=== PATIENT | male | born 1990 | race Caucasian/White ===

== ENCOUNTER 2020-05-08 16:47 | Inpatient (IN) | payer MEDICAID ==
[~2020-05-08] VITALS: Ht 170.2 cm; Wt 79.0 kg
[2020-05-08 18:56] LABS: EOSINOPHILS % (AUTO) 0 % (1.0-6.0); HEMATOCRIT 44.8 % (41-53); HEMOGLOBIN 15.1 g/dL (13.5-17.5); LYMPHOCYTES # (AUTO) 0.6 K/uL (1.0-4.8); LYMPHOCYTES % (AUTO) 9.2 % (22.0-44.0); MEAN CORPUSCULAR HEMOGLOBIN 28.4 pg (26.0-34.0); MEAN CORPUSCULAR HGB CONC 33.6 G/dL (31.0-37.0); MEAN CORPUSCULAR VOLUME 85 fL (80-100); MONOCYTES # (AUTO) 0.3 K/uL (0.1-1.0); NEUTROPHILS # (AUTO) 5.5 K/uL (1.8-7.7); PLATELET COUNT (AUTO) 320 K/uL (150-450); RED CELL DISTRIBUTION WIDTH 13.7 % (11.5-14.5)
[2020-05-08 18:58] LABS: NEUTROPHILS % (AUTO) 86.8 % (40.0-70.0)
[2020-05-08 19:01] LABS: ANION GAP 8 mmol/L (8-16); CARBON DIOXIDE 29 mmol/L (22-29); CHLORIDE 101 mmol/L (98-107); CREATININE 0.83 mg/dL (0.60-1.30); GLOMERULAR FILTR. RATE CALC > 60 mL/min (>60); GLUCOSE,RANDOM 115 mg/dL (70-110); POTASSIUM 4.4 mmol/L (3.5-5.1); SODIUM SERUM 138 mmol/L (136-145); UREA NITROGEN, BLOOD 18 mg/dL (7-18)
[2020-05-08 19:08] LABS: ALANINE AMINOTRANSFERASE 71 U/L (12-78); ALBUMIN 4.5 g/dL (3.4-5.0); ALKALINE PHOSPHATASE 92 U/L (46-116); ASPARTATE AMINOTRANSFERASE 24 U/L (15-37); BILIRUBIN,TOTAL 0.7 mg/dL (0.1-1.0)
[2020-05-08 19:22] LABS: COVID AG,FIA SOURCE NASOPHARYNGEAL
[2020-05-08] MEDS ORDERED: LORazepam 2 MG/ML VIAL IM ONE (19:30)
[2020-05-08 22:09] VITALS: BP 140/94
[2020-05-08] MEDS: ZOLPIDEM TARTRATE 10 MG TABLET PO PRN (22:33)
[2020-05-09] VITALS (11 sets, daily range): BP systolic 113–138; BP diastolic 66–91
[2020-05-09] MEDS: LORazepam 2 MG TABLET PO PRN ×3 (03:55→14:29)
[2020-05-09] MEDS ORDERED: ACETAMINOPHEN 325 MG TABLET PO PRN (07:45)
[2020-05-09] MEDS ORDERED: OMEPRAZOLE 20 MG CAPSULE PO PRN (07:45)
[2020-05-09] MEDS ORDERED: PETROLATUM,WHITE 28 GM JELLY TP PRN (07:45)
[2020-05-09] MEDS ORDERED: BACITRACIN 28 GM OINTMENT TP PRN (07:45)
[2020-05-09] MEDS ORDERED: ONDANSETRON HCL 4 MG TABLET PO PRN (07:45)
[2020-05-09] MEDS ORDERED: BENZOCAINE/MENTHOL LOZENGE PO PRN (07:45)
[2020-05-09] MEDS ORDERED: LOPERAMIDE HCL 2 MG CAPSULE PO PRN (07:45)
[2020-05-09] MEDS ORDERED: MAG HYDROX/AL HYDROX/SIMETH ES 30 ML SUSPENSION UDCUP PO PRN ×2 (07:45→19:15)
[2020-05-09] MEDS ORDERED: CloNIDine HCL 0.1 MG TABLET PO PRN (07:45)
[2020-05-09] MEDS ORDERED: DOCUSATE SODIUM 100 MG CAPSULE PO PRN (07:45)
[2020-05-09] MEDS ORDERED: ALBUTEROL SULFATE HFA 90 MCG/PUFF 8 GM INHALER IH PRN (07:45)
[2020-05-09] MEDS ORDERED: MAGNESIUM HYDROXIDE SUSPENSION 30 ML UDCUP PO PRN (07:45)
[2020-05-09 07:49] LABS: CHOL/HDL RATIO 9.8 (4.2-7.3)
[2020-05-09] MEDS: OLANZapine 5 MG RAPDIS TABLET PO PRN ×2 (08:00→14:29)
[2020-05-09 08:37] LABS: AMPHET/METH SCREEN,URINE NEGATIVE (NEGATIVE); BARBITURATE SCREEN, URINE NEGATIVE (NEGATIVE); BENZODIAZEPINES SCREEN,URINE POSITIVE (NEGATIVE); CANNABINOID SCREEN,URINE NEGATIVE (NEGATIVE); COCAINE SCREEN,URINE POSITIVE (NEGATIVE); METHADONE SCREEN, URINE NEGATIVE (NEGATIVE); OPIATE SCREEN,URINE NEGATIVE (NEGATIVE)
[2020-05-09 08:40] LABS: PHENCYCLIDINE SCREEN,URINE NEGATIVE (NEGATIVE)
[2020-05-09 08:42] LABS: APPEARANCE,URINE CLEAR (CLEAR); GLUCOSE, URINE (UA) NEGATIVE (NEGATIVE); KETONES,URINE 40 mg/dL (NEGATIVE); LEUKOCYTE ESTERASE ,URINE NEGATIVE (NEGATIVE); NITRATE,URINE NEGATIVE (NEGATIVE); OCCULT BLOOD,URINE NEGATIVE (NEGATIVE); PROTEIN,URINE TRACE (NEGATIVE)
[2020-05-09 08:43] LABS: BILIRUBIN,URINE PRELIM. POSITIVE (NEGATIVE)
[2020-05-09 08:54] LABS: BACTERIA,URINE None Seen /HPF (None Seen); RBC,URINE None Seen /HPF (0-2); WBC,URINE None Seen /HPF (0-5)
[2020-05-09] MEDS ORDERED: TUBERCULIN, PURIFIED PROTEIN DERIVATIVE 5 TU/0.1 ML SYRINGE ID ONE (19:15)
[2020-05-09] MEDS ORDERED: IBUPROFEN 600 MG TABLET PO PRN (19:15)
[2020-05-09] MEDS ORDERED: PROMETHAZINE HCL 25 MG TABLET PO PRN (19:15)
[2020-05-09] MEDS ORDERED: HydrOXYzine PAMOATE 50 MG CAPSULE PO PRN (19:15)
[2020-05-09] MEDS ORDERED: GuaiFENesin/D-METHORPHAN [SUGAR-FREE] 200-20MG/10 ML SYRUP UDCUP PO PRN (19:15)
[2020-05-09] MEDS: GABAPENTIN 300 MG CAPSULE PO SCH (20:13)
[2020-05-09] MEDS: CloNIDine HCL 0.1 MG TABLET PO SCH (22:19)
[2020-05-09] MEDS: ZOLPIDEM TARTRATE 10 MG TABLET PO PRN (22:23)
[2020-05-10] VITALS (9 sets, daily range): BP systolic 101–122; BP diastolic 58–81
[2020-05-10] MEDS: LORazepam 2 MG TABLET PO PRN ×3 (01:55→14:26)
[2020-05-10 05:06] LABS: CHOL/HDL RATIO 10.4 (4.2-7.3); FREE T4 (FREE THYROXINE) 1.19 ng/dL (0.76-1.46); THYROID STIMULATING HORMONE 1.63 uIU/mL (0.36-3.74)
[2020-05-10 05:19] LABS: HEMOGLOBIN A1C 5.1 % (3.8-5.6)
[2020-05-10] MEDS: CloNIDine HCL 0.1 MG TABLET PO SCH ×4 (05:57→21:32)
[2020-05-10] MEDS: OMEGA-3/DHA/EPA/FISH OIL 1,000 MG CAPSULE PO SCH (10:31)
[2020-05-10] MEDS: MULTIVITAMINS WITH MINERALS, THERAPEUTIC TABLET PO SCH (10:31)
[2020-05-10] MEDS: GABAPENTIN 300 MG CAPSULE PO SCH ×2 (10:31→14:18)
[2020-05-10] MEDS: OLANZapine 5 MG RAPDIS TABLET PO PRN ×2 (10:31→14:26)
[2020-05-10] MEDS: THIAMINE 100 MG TABLET PO SCH ×2 (10:32→16:39)
[2020-05-10] MEDS: FOLIC ACID 1 MG TABLET PO SCH (10:32)
[2020-05-10] MEDS: IBUPROFEN 600 MG TABLET PO PRN (14:50)
[2020-05-10] MEDS: GABAPENTIN 400 MG CAPSULE PO SCH ×2 (16:39→20:40)
[2020-05-11] VITALS (7 sets, daily range): BP systolic 104–131; BP diastolic 64–80
[2020-05-11] MEDS: CloNIDine HCL 0.1 MG TABLET PO PRN (01:32)
[2020-05-11] MEDS: OLANZapine 5 MG RAPDIS TABLET PO PRN ×2 (01:32→11:24)
[2020-05-11] MEDS: CloNIDine HCL 0.1 MG TABLET PO SCH ×4 (06:08→22:36)
[2020-05-11] MEDS: MULTIVITAMINS WITH MINERALS, THERAPEUTIC TABLET PO SCH (08:49)
[2020-05-11] MEDS: GABAPENTIN 400 MG CAPSULE PO SCH ×4 (08:49→20:42)
[2020-05-11] MEDS: THIAMINE 100 MG TABLET PO SCH ×2 (08:49→16:47)
[2020-05-11] MEDS: OMEGA-3/DHA/EPA/FISH OIL 1,000 MG CAPSULE PO SCH (08:49)
[2020-05-11] MEDS: FOLIC ACID 1 MG TABLET PO SCH (08:49)
[2020-05-11] MEDS: LORazepam 2 MG TABLET PO PRN ×2 (11:24→21:29)
[2020-05-12] VITALS (7 sets, daily range): BP systolic 101–156; BP diastolic 64–82
[2020-05-12] MEDS: ZOLPIDEM TARTRATE 10 MG TABLET PO PRN (00:19)
[2020-05-12] MEDS: HydrOXYzine PAMOATE 50 MG CAPSULE PO PRN ×2 (01:56→09:22)
[2020-05-12] MEDS: LORazepam 2 MG TABLET PO PRN ×2 (01:56→09:23)
[2020-05-12] MEDS: CloNIDine HCL 0.1 MG TABLET PO SCH ×4 (06:00→22:00)
[2020-05-12] MEDS: IBUPROFEN 600 MG TABLET PO PRN (07:40)
[2020-05-12] MEDS: MULTIVITAMINS WITH MINERALS, THERAPEUTIC TABLET PO SCH (09:20)
[2020-05-12] MEDS: OLANZapine 5 MG RAPDIS TABLET PO PRN (09:20)
[2020-05-12] MEDS: GABAPENTIN 400 MG CAPSULE PO SCH ×3 (09:20→16:51)
[2020-05-12] MEDS: OMEGA-3/DHA/EPA/FISH OIL 1,000 MG CAPSULE PO SCH (09:20)
[2020-05-12] MEDS: THIAMINE 100 MG TABLET PO SCH ×2 (09:20→16:51)
[2020-05-12] MEDS: FOLIC ACID 1 MG TABLET PO SCH (09:21)
[2020-05-12] MEDS ORDERED: OLANZapine 5 MG RAPDIS TABLET PO SCH (21:00)
[2020-05-12] MEDS: GABAPENTIN 300 MG CAPSULE PO SCH (21:53)
[2020-05-12] MEDS: OLANZapine 10 MG RAPDIS TABLET PO SCH (21:54)
[2020-05-13] MEDS: CloNIDine HCL 0.1 MG TABLET PO SCH ×4 (06:05→21:43)
[2020-05-13 06:12] VITALS: BP 108/67
[2020-05-13 09:00] VITALS: BP 107/59
[2020-05-13] MEDS: GABAPENTIN 300 MG CAPSULE PO SCH ×4 (10:03→21:41)
[2020-05-13] MEDS: OMEGA-3/DHA/EPA/FISH OIL 1,000 MG CAPSULE PO SCH (10:03)
[2020-05-13] MEDS: FOLIC ACID 1 MG TABLET PO SCH (10:03)
[2020-05-13] MEDS: THIAMINE 100 MG TABLET PO SCH ×2 (10:03→16:25)
[2020-05-13] MEDS: MULTIVITAMINS WITH MINERALS, THERAPEUTIC TABLET PO SCH (10:03)
[2020-05-13] MEDS: IBUPROFEN 600 MG TABLET PO PRN ×2 (10:08→17:47)
[2020-05-13] MEDS: LORazepam 2 MG TABLET PO PRN (13:19)
[2020-05-13] MEDS: CloNIDine HCL 0.1 MG TABLET PO PRN (13:24)
[2020-05-13 16:00] VITALS: BP 91/55
[2020-05-13 17:47] VITALS: BP 118/74
[2020-05-13] MEDS: OLANZapine 10 MG RAPDIS TABLET PO SCH (21:41)
[2020-05-14] MEDS: ZOLPIDEM TARTRATE 10 MG TABLET PO PRN ×2 (00:11→23:35)
[2020-05-14] MEDS: LORazepam 2 MG TABLET PO PRN ×2 (00:11→09:06)
[2020-05-14 05:58] VITALS: BP 97/62
[2020-05-14] MEDS: CloNIDine HCL 0.1 MG TABLET PO SCH ×4 (06:23→21:23)
[2020-05-14] MEDS: FOLIC ACID 1 MG TABLET PO SCH (09:00)
[2020-05-14] MEDS: OMEGA-3/DHA/EPA/FISH OIL 1,000 MG CAPSULE PO SCH (09:00)
[2020-05-14] MEDS: THIAMINE 100 MG TABLET PO SCH ×2 (09:00→16:38)
[2020-05-14] MEDS: GABAPENTIN 300 MG CAPSULE PO SCH ×4 (09:00→21:23)
[2020-05-14] MEDS: MULTIVITAMINS WITH MINERALS, THERAPEUTIC TABLET PO SCH (09:00)
[2020-05-14] MEDS: IBUPROFEN 600 MG TABLET PO PRN ×2 (09:06→21:24)
[2020-05-14 10:06] VITALS: BP 110/73
[2020-05-14] MEDS: HydrOXYzine PAMOATE 50 MG CAPSULE PO PRN (12:31)
[2020-05-14 16:45] VITALS: BP 94/62
[2020-05-14 21:21] VITALS: BP 109/70
[2020-05-14] MEDS: OLANZapine 10 MG RAPDIS TABLET PO SCH (21:23)
[2020-05-15 01:15] VITALS: BP 120/75
[2020-05-15] MEDS: LORazepam 2 MG TABLET PO PRN ×3 (01:17→12:40)
[2020-05-15 06:21] VITALS: BP 117/71
[2020-05-15] MEDS: CloNIDine HCL 0.1 MG TABLET PO SCH ×3 (06:22→16:55)
[2020-05-15] MEDS: FOLIC ACID 1 MG TABLET PO SCH (08:30)
[2020-05-15] MEDS: THIAMINE 100 MG TABLET PO SCH ×2 (08:30→16:55)
[2020-05-15] MEDS: GABAPENTIN 300 MG CAPSULE PO SCH ×4 (08:30→20:01)
[2020-05-15] MEDS: MULTIVITAMINS WITH MINERALS, THERAPEUTIC TABLET PO SCH (08:30)
[2020-05-15] MEDS: OMEGA-3/DHA/EPA/FISH OIL 1,000 MG CAPSULE PO SCH (08:30)
[2020-05-15] MEDS: IBUPROFEN 600 MG TABLET PO PRN (08:38)
[2020-05-15] MEDS ORDERED: ATORVASTATIN CALCIUM 20 MG TABLET PO SCH (09:00)
[2020-05-15 11:12] VITALS: BP 114/70
[2020-05-15 17:12] VITALS: BP 113/69
[2020-05-15] MEDS ORDERED: NALT50TA PO (18:46)
[2020-05-15] MEDS ORDERED: OMEG-135 PO (18:46)
[2020-05-15] MEDS ORDERED: GABA-1181 PO (18:46)
[2020-05-15] MEDS ORDERED: OLAN10TA22 PO (18:46)
[2020-05-15] MEDS ORDERED: ATOR80TA PO (19:14)
[2020-05-15] MEDS ORDERED: ATOR40TA28 PO (19:17)
[2020-05-15] MEDS: OLANZapine 10 MG RAPDIS TABLET PO SCH (20:01)
== END 2020-05-15 20:15 | disposition home or self-care (01) | DRG 751 ==
LOC: EMS 16:47 → 3EI 19:23 → UNDOADMIN 20:41 → 3EI 20:58
PROVIDERS: ADMIT Psychiatry & Neurology Psychiatry; ATTEND Psychiatry & Neurology Psychiatry
DX: F32.3 Major depressive disorder, single episode, severe with psychotic features (principal); F11.10 Opioid abuse, uncomplicated; F41.0 Panic disorder [episodic paroxysmal anxiety]; R45.851 Suicidal ideations; F41.9 Anxiety disorder, unspecified; R45.87 Impulsiveness; F14.90 Cocaine use, unspecified, uncomplicated; Z59.9 Problem related to housing and economic circumstances, unspecified; Z65.3 Problems related to other legal circumstances; Z56.0 Unemployment, unspecified; Z03.818 Encounter for observation for suspected exposure to other biological agents ruled out
CPT/HCPCS: 73521; 83036; 84439; 84443; 86592; 87426; G0480; J2060

== ENCOUNTER 2020-05-22 15:50 | Emergency (ER) | payer MEDICAID ==
[~2020-05-22] VITALS: Ht 170.2 cm; Wt 81.8 kg
[~2020-05-22 15:50] MED LIST: ATOR40TA28 PO; GABA-1181 PO; NALT50TA PO; OLAN10TA22 PO; OMEG-135 PO
[2020-05-22] MEDS ORDERED: ONDANSETRON HCL 4 MG/2 ML VIAL IVP ONE (16:30)
[2020-05-22] MEDS ORDERED: SODIUM CHLORIDE 0.9% 1,000 ML IV ONE ×2 (16:30→20:45)
[2020-05-22 18:14] LABS: EOSINOPHILS % (AUTO) 0 % (1.0-6.0); HEMATOCRIT 40.5 % (41-53); HEMOGLOBIN 13.8 g/dL (13.5-17.5); LYMPHOCYTES # (AUTO) 0.9 K/uL (1.0-4.8); LYMPHOCYTES % (AUTO) 7.8 % (22.0-44.0); MEAN CORPUSCULAR HEMOGLOBIN 29.1 pg (26.0-34.0); MEAN CORPUSCULAR VOLUME 86 fL (80-100); MONOCYTES # (AUTO) 0.7 K/uL (0.1-1.0); MONOCYTES % (AUTO) 5.8 % (2.0-9.0); NEUTROPHILS # (AUTO) 10.4 K/uL (1.8-7.7); PLATELET COUNT (AUTO) 331 K/uL (150-450); RED BLOOD CELL COUNT(AUTO) 4.74 MIL/uL (4.50-5.90); RED CELL DISTRIBUTION WIDTH 14.4 % (11.5-14.5)
[2020-05-22 18:18] LABS: NEUTROPHILS % (AUTO) 86.4 % (40.0-70.0)
[2020-05-22 18:28] LABS: ANION GAP 10 mmol/L (8-16); CARBON DIOXIDE 25 mmol/L (22-29); CHLORIDE 110 mmol/L (98-107); CREATININE 0.76 mg/dL (0.60-1.30); GLOMERULAR FILTR. RATE CALC > 60 mL/min (>60); GLUCOSE,RANDOM 122 mg/dL (70-110); POTASSIUM 3.7 mmol/L (3.5-5.1); SODIUM SERUM 145 mmol/L (136-145); UREA NITROGEN, BLOOD 11 mg/dL (7-18)
[2020-05-22 18:35] LABS: SALICYLATE 0.9 mg/dL (2.8-20.0)
[2020-05-22 18:47] LABS: ACETAMINOPHEN < 2 mcg/mL (10-30); ALANINE AMINOTRANSFERASE 41 U/L (12-78); ALBUMIN 3.8 g/dL (3.4-5.0); ALKALINE PHOSPHATASE 125 U/L (46-116); ASPARTATE AMINOTRANSFERASE 21 U/L (15-37); BILIRUBIN,TOTAL 0.3 mg/dL (0.1-1.0); CREATINE KINASE, TOTAL ONLY 94 U/L (39-308); TOTAL PROTEIN, SERUM 6.6 g/dL (6.4-8.2)
[2020-05-22 19:49] LABS: COVID AG,FIA SOURCE NASOPHARYNGEAL
[2020-05-22 21:28] LABS: AMPHET/METH SCREEN,URINE NEGATIVE (NEGATIVE); BARBITURATE SCREEN, URINE NEGATIVE (NEGATIVE); BENZODIAZEPINES SCREEN,URINE NEGATIVE (NEGATIVE); CANNABINOID SCREEN,URINE NEGATIVE (NEGATIVE); COCAINE SCREEN,URINE NEGATIVE (NEGATIVE); METHADONE SCREEN, URINE NEGATIVE (NEGATIVE); OPIATE SCREEN,URINE NEGATIVE (NEGATIVE)
[2020-05-22 21:29] LABS: PHENCYCLIDINE SCREEN,URINE NEGATIVE (NEGATIVE)
[2020-05-22 22:10] VITALS: BP 143/85
== END 2020-05-22 22:20 | disposition home or self-care (01) ==
LOC: EMS 15:50
DX: T40.411A Poisoning by fentanyl or fentanyl analogs, accidental (unintentional), initial encounter (principal); F11.10 Opioid abuse, uncomplicated; F17.290 Nicotine dependence, other tobacco product, uncomplicated; Z20.828 Contact with and (suspected) exposure to other viral communicable diseases; Z79.899 Other long term (current) drug therapy; Y92.89 Other specified places as the place of occurrence of the external cause
CPT/HCPCS: 36415; 80053; 80307; 82550; 83735; 84484; 85025; 87426; 93005; 96361; 96374; 99285; G0480; J2405; J7030; 99406; G0481

== ENCOUNTER 2020-09-06 06:25 | Emergency (ER) | payer MEDICAID, OTHER ==
[~2020-09-06] VITALS: Ht 170.2 cm; Wt 79.1 kg
[~2020-09-06 06:25] MED LIST changes: -ATOR40TA28 PO; +BUPR-48 PO; +ESZO3 PO; -GABA-1181 PO; +GABA-1201 PO; +MELA5TAB3 PO; +MIRT-89 PO; -OLAN10TA22 PO; +QUET200T29 PO
[2020-09-06] MEDS ORDERED: LORazepam 2 MG/ML VIAL IVP ONE ×2 (06:45→09:00)
[2020-09-06] MEDS ORDERED: ONDANSETRON HCL 4 MG/2 ML VIAL IVP ONE (06:45)
[2020-09-06] MEDS ORDERED: SODIUM CHLORIDE 0.9% 1,000 ML IV ONE ×2 (06:45→07:45)
[2020-09-06 07:08] LABS: BASOPHILS % (AUTO) 0.1 % (0.0-2.0); EOSINOPHILS % (AUTO) 0 % (1.0-6.0); HEMATOCRIT 45.9 % (41-53); HEMOGLOBIN 15.8 g/dL (13.5-17.5); LYMPHOCYTES # (AUTO) 1.4 K/uL (1.0-4.8); MEAN CORPUSCULAR HEMOGLOBIN 28.6 pg (26.0-34.0); MEAN CORPUSCULAR HGB CONC 34.4 G/dL (31.0-37.0); MEAN CORPUSCULAR VOLUME 83 fL (80-100); MONOCYTES # (AUTO) 0.6 K/uL (0.1-1.0); NEUTROPHILS # (AUTO) 10.3 K/uL (1.8-7.7); NEUTROPHILS % (AUTO) 83.9 % (40.0-70.0); PLATELET COUNT (AUTO) 423 K/uL (150-450); RED BLOOD CELL COUNT(AUTO) 5.52 MIL/uL (4.50-5.90); RED CELL DISTRIBUTION WIDTH 12.9 % (11.5-14.5)
[2020-09-06 07:12] LABS: ANION GAP 16 mmol/L (8-16); CALCIUM, TOTAL 9.4 mg/dL (8.8-10.5); CARBON DIOXIDE 24 mmol/L (22-29); CHLORIDE 101 mmol/L (98-107); CREATININE 1.01 mg/dL (0.60-1.30); GLOMERULAR FILTR. RATE CALC > 60 mL/min (>60); GLUCOSE,RANDOM 102 mg/dL (70-110); POTASSIUM 3.7 mmol/L (3.5-5.1); SODIUM SERUM 141 mmol/L (136-145); UREA NITROGEN, BLOOD 17 mg/dL (7-18)
[2020-09-06 07:17] LABS: AMPHET/METH SCREEN,URINE NEGATIVE (NEGATIVE); BARBITURATE SCREEN, URINE NEGATIVE (NEGATIVE); BENZODIAZEPINES SCREEN,URINE NEGATIVE (NEGATIVE); CANNABINOID SCREEN,URINE NEGATIVE (NEGATIVE); COCAINE SCREEN,URINE NEGATIVE (NEGATIVE); METHADONE SCREEN, URINE NEGATIVE (NEGATIVE); OPIATE SCREEN,URINE NEGATIVE (NEGATIVE)
[2020-09-06 07:20] LABS: PHENCYCLIDINE SCREEN,URINE NEGATIVE (NEGATIVE)
[2020-09-06 07:22] LABS: ALANINE AMINOTRANSFERASE 24 U/L (12-78); ALBUMIN 4.5 g/dL (3.4-5.0); ALKALINE PHOSPHATASE 83 U/L (46-116); ASPARTATE AMINOTRANSFERASE 11 U/L (15-37); BILIRUBIN,TOTAL 0.9 mg/dL (0.1-1.0); TOTAL PROTEIN, SERUM 8.2 g/dL (6.4-8.2)
[2020-09-06 07:28] LABS: ACETAMINOPHEN < 2 mcg/mL (10-30); SALICYLATE 1.2 mg/dL (2.8-20.0)
[2020-09-06] MEDS ORDERED: CloNIDine HCL 0.1 MG TABLET PO ONE (07:45)
[2020-09-06 09:48] LABS: COVID AG,FIA SOURCE NASOPHARYNGEAL
[2020-09-06 10:17] VITALS: BP 119/66
== END 2020-09-06 10:51 | disposition home or self-care (01) ==
LOC: EMS 06:26
DX: F32.9 Major depressive disorder, single episode, unspecified (principal); R45.851 Suicidal ideations; Z79.899 Other long term (current) drug therapy; Z20.822 Contact with and (suspected) exposure to COVID-19
CPT/HCPCS: 36415; 80053; 80307; 85025; 87426; 93005; 96361; 96374; 96375; 96376; 99284; C9803; G0480; J2060; J2405; J7030; G0481